=== PATIENT | male | born 1975 | race Caucasian/White ===

== ENCOUNTER 2022-02-16 09:46 | Emergency (ER) | payer BC, SELFPAY ==
[2022-02-16 09:56] VITALS: BP 138/100; PULSE 64; RESP 18; TEMP 36.7; O2SAT 99
--- NOTE | 2022-02-16 10:30 | DI.CT_ITS ---
Exam(s) CT RENAL COLIC WO EXAM: CT RENAL COLIC WO CLINICAL HISTORY: left flank pain into groin. TECHNIQUE: Imaging Protocol: Axial computed tomography images with coronal and sagittal reformatted images were created and reviewed. CONTRAST MATERIAL: Noncontrast COMPARISON: No exams were available for comparison FINDINGS: ABDOMEN: Lung Bases: Normal where visualized. Liver: Normal attenuation. No measurable mass. Gallbladder and biliary tract: No radiodense calculus or dilation. Pancreas: Normal density, no calcifications or inflammatory process. Spleen: Normal. Kidneys: Normal size, contour and axis. 1 millimeter stone at the left ureterovesical junction causin g mild hydronephrosis. Minimal left perinephric stranding. Small cyst right kidney. No suspicious masses seen. Adrenal glands: No masses seen. Abdominal Aorta: Abdominal portion non-dilated. PELVIS: Bladder: Symmetric distention, no gross wall thickening. No evidence of stones.No visible mass. Bowel: No obstruction or bowel wall thickening. Reproductive: Peritoneal cavity: No ascites, collection or mesenteric inflammatory response. 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 Mild facet degenerative rosas es lumbar spine.. IMPRESSION: 1 millimeter stone left ureterovesical junction causing mild left hydronephrosis. RADIATION DOSE DELIVERED: 881.68mGy.cm Total DLP DATA REPOSITORY: All CT scans at this facility are submitted to the National Radiology Data Registry (NRDR) Dose Index Registry (DIR) with the [employer] ([employer]). RADIATION OPTIMIZATION: All CT scans at this facility use at least one of these dose optimization te chniques: automated exposure control; mA and/or kV adjustment per patient size (includes targeted exa ms where dose is matched to clinical indication); or iterative reconstruction.
--- NOTE | 2022-02-16 10:32 | ED.GENADUL_ITS ---
Discharge Plan Disposition Patient Disposition: Home Condition: Stable Discharge Details Clinical Impression: Kidney stone Primary Care Provider: None,None ED Provider: Angelica Gonzalez Home Meds and New Rx's Prescriptions: Continued atorvastatin 40 mg Tablet 40 mg PO DAILY lisinopril 20 mg Tablet 20 mg PO DAILY amlodipine 10 mg Tablet 10 mg PO DAILY Discharge Instructions Instructions: Kidney Stones (ED) Additional Instructions: Your work-up today was positive for a 1 mm stone. This is was causing your pain from the left groin to your left flank. Please encourage hydration. You may use Tylenol and/or ibuprofen as needed for discomfort. Please take as directed on the packaging. Please take it the Flomax as prescribed. This has been sent to [facility]. You were given a dose here in [facility] your next dose will not be due until tomorrow. You may stop this medication after the passage of the stone. If you develop fever/chills, increased pain, inability stay hydrated or other new/worsening symptoms please take care urgently once again. Otherwise, I have referred you to local primary care as well as urology for continued care. Discharge Data Discharge Date/Time-TO BE ENTERED AT DEPARTURE: 02/16/22 12:43 Medical Decision Making Patient is a pleasant 46-year-old male presenting today with chief complaint of left flank pain radiating into the groin. He reports that around 730 this morning he had a sudden onset of severe pain feeling like he had been kicked in the testicles. States that the pain initiated in the left testicle and radiated towards the left flank. Pain is now primarily in the left flank and he is not having active testicular pain. He denies any hematuria, penile discharge. States that he has been more dehydrated recently than typical. Does have a history of kidney stones when he was 15. Denies any fevers or chills. On exam, patient appears nontoxic. He does appear uncomfortable and is holding his left flank. Abdomen is benign with no peritoneal findings. Left testicle without any swelling or pain. Left is slightly higher than the right but without testicular pain, I do not see evidence to suggest testicular torsion. More concern at this time for recurrent stone given patient's remote history. Will give Toradol, fluids and obtain imaging. Discussed this plan with the patient who is in agreement. FINDINGS: Lungs: Unremarkable. Lung bases are clear. Liver: Unremarkable. No mass. Gallbladder and bile ducts: Unremarkable. No calcified stones. No ductal dilation. Pancreas: Unremarkable. No ductal dilation. Spleen: Unremarkable. No splenomegaly. Adrenal glands: Normal. No mass. Kidneys and ureters: 1 mm obstructing stone at the left UVJ causing mild left hydronephrosis. Bilateral micro nephrolithiasis. No right-sided obstructive uropathy Stomach and bowel: Unremarkable. No obstruction. No mucosal thickening. Appendix: No evidence of appendicitis. Intraperitoneal space: Unremarkable. No free air. No significant fluid collection. Vasculature: Unremarkable. No abdominal aortic aneurysm. Lymph nodes: Unremarkable. No enlarged lymph nodes. Urinary bladder: Unremarkable as visualized. Reproductive: Unremarkable as visualized. Bones/joints: Remote T12 compression fracture Soft tissues: Unremarkable. IMPRESSION: 1. 1 mm obstructing stone at the left UVJ causing mild left hydronephrosis. 2. Bilateral micro nephrolithiasis. 3. No right-sided obstructive uropath Discussed these findings with the patient. Labs reviewed as well, no evidence of UTI. He has RBC in urine, consistent with above. Will begin on Flomax. Encouraged hydration. Pain is abatted currently. Discussed supportive care. Will refer to urology. Discussed pain management. He is doing well with Toradol. Will continue with APAP and NSAIDS. Return precauttions discussed. All of his questions and concerns were addressed, he si in agreement with this plan. HPI General Date/Time Provider Initiated Documentation: 02/16/22 10:32 . Limitations to Documentation: no limitations . Information obtained by: patient and RN notes reviewed . History of Present Illness 46 year old M presents to the emergency department with the chief complaint of left flank pain, described as severe, with intensity rated at 8. Quality is described as stabbing, and is localized to the back. Patient distal (to testicles). Patient started experiencing this hour(s) and it has been constant. No relieving factors improve symptom(s), No exacerbating factors reported . Patient notes no other symptoms.. Patient did receive the following treatments prior to arrival, none Related Data Home Medications Medication Instructions Recorded Confirmed amlodipine 10 mg tablet 10 mg PO DAILY 02/16/22 02/22/22 atorvastatin 40 mg tablet 40 mg PO DAILY 02/16/22 02/22/22 lisinopril 20 mg tablet 20 mg PO DAILY 02/16/22 02/22/22 Allergies Allergy/AdvReac Type Severity Reaction Status Date / Time No Known Allergies Allergy Unverified 02/22/22 07:08 General Stated Complaint: FlankPain STARLA: 3 Review of Systems Constitutional Constitutional: Reports as per HPI, Denies chills, Denies fatigue, Denies fever(s) and Denies headache(s) ENT Ears, Nose, Mouth, and Throat: Denies headache(s) Cardiovascular Cardiovascular: Reports as per HPI, Denies chest pain and Denies dyspnea Respiratory Respiratory: Reports as per HPI, Denies cough and Denies dyspnea Gastrointestinal Gastrointestinal: Reports as per HPI Genitourinary Genitourinary: Reports as per HPI Musculoskeletal Musculoskeletal: Reports as per HPI Neurologic Neurologic: Denies headache(s) Endocrine Endocrine: Denies fatigue PFSH All Active Problems (Updated 02/22/22 @ 07:28 by Cassidy Guerrero NP) Left renal stone (Acute) Social History Smoking/Tobacco Use Status: Current every day Tobacco Type: cigarettes Smoking risk assessment performed?: Yes Alcohol Intake: current Alcohol Intake frequency: a few times a week Alcohol type: beer Drug use: Daily Substance use type: marijuana Do you feel safe at home: Yes Do you feel safe in your relationship?: Yes Exam Const General: cooperative, healthy appearing, uncomfortable, no acute distress and well developed Nutritional Appearance: average body habitus and well nourished Orientation: alert and awake HENMT Mouth: moist mucous membranes Resp Effort & Inspection: normal respiratory effort and no respiratory distress Auscultation: clear to auscultation bilaterally, no rales, no rhonchi and no wheezes Cardio Rate: regular rate Rhythm: regular rhythm Heart Sounds: S1 normal and S2 normal GI Inspection: normal to inspection, no edema and non-distended Palpation: soft, no hepatosplenomegaly, no guarding, no hernias, no pulsatile masses and nontender Percussion: normal to percussion Auscultation: normal bowel sounds Male General Exam: Yes normal external exam, No edema, No erythema, No inguinal lymphadenopathy and No tenderness Penis: normal penis Scrotum: scrotum normal Testes: normal and testicular lie normal Back/Spine/Pelvis Back: CVA tenderness (left) Skin General skin exam: no rashes or lesions noted Neuro General: patient alert and patient awake Cognition: normal cognition Speech: speech normal Gait: normal gait Psych Appearance: grossly normal and well kempt Mental Status: mental status grossly normal Speech and Movement: speech and movement normal Course Vital Signs Vital signs: Vital Signs Temperature 36.7 C 02/16/22 09:56 Pulse 64 02/16/22 09:56 Respiratory Rate 18 02/16/22 09:56 Blood Pressure 138/100 H 02/16/22 09:56 Pulse Oximetry 99 02/16/22 09:56 Temperature 36.7 C 02/16/22 09:56 Temperature Source Temporal Artery Scan 02/16/22 09:56 Pulse 64 02/16/22 09:56 Respiratory Rate 18 02/16/22 09:56 Respiratory Effort Non-Labored 02/16/22 10:01 Blood Pressure 138/100 H 02/16/22 09:56 Blood Pressure Position Sitting 02/16/22 09:56 Pulse Oximetry 99 02/16/22 09:56 Oxygen Delivery Method Room Air 02/16/22 09:56 Oxygen Flow Rate 0 02/16/22 09:56 Pain Level 8 02/16/22 10:01 PAWSS Have you Been Recently Intoxicated or Drunk Within the Last 30 days?: No Have you Ever Experienced Previous Episodes of Alcohol Withdrawal?: No Have you ever Experienced Withdrawal Seizures?: No Have you ever Experienced Delirium Tremens(DT)s?: No Have you ever undergone Alcohol Rehabilitation Treatment (i.e, inpt ot outpatient treatment programs)?: No Have you ever Experienced Blackouts?: No Have you ever Combined Alcohol with other Downers within the last 90 days?: No Have you ever Combined Alcohol with any other Substance of Abuse during the last 90 days?: No Positive Blood Alcohol level on Presentation? [PCS.BAL]: No Evidence of Increased Autonomic Activity (i.e. HR>120, tremor, sweating, agitation, nausea)?: No Result: 0
[2022-02-16 10:42] LABS: Bilirubin Negative (Negative); Blood Moderate (Negative); Clarity Clear (Clear); Glucose Negative (Negative); Ketones Negative (Negative); Leukocyte Esterase Negative (Negative); Nitrite Negative (Negative); Specific Gravity 1.025 (1.005-1.025); pH 6.5 (5-8)
[2022-02-16] MEDS: Ketorolac 30 MG/ML VIAL IVP (10:46)
[2022-02-16] MEDS: Normal Saline 1,000 ML 1000 ML IV (10:47)
[2022-02-16 10:52] LABS: Abs Immature Grans 0.04 10^3/uL (0.0-0.06); Absolute Basophil Count 0.05 10^3/uL (0.0-0.2); Absolute Eosinophil Count 0.14 10^3/uL (0.0-0.7); Absolute Lymphocyte Count 2.09 10^3/uL (1.2-3.4); Absolute Monocyte Count 0.48 10^3/uL (0.1-0.8); Absolute Neutrophil Count 3.57 10^3/uL (1.2-6.7); Basophils % 0.8; Eosinophils % 2.2; HCT 41.7 % (40.0-50.0); HGB 14.1 g/dL (13.5-17.5); Immature Grans % 0.6; Lymphocytes % 32.8; MCH 29.6 pg (27.0-33.0); MCHC 33.8 % (32.0-36.0); MCV 88 fL (80-95); MPV 10.9 fL (8.0-11.0); Monocytes % 7.5; Neutrophils % 56.1; Platelet Count 241 10^3/uL (130-400); RBC 4.76 10^6/uL (4.36-5.78); RDW 13.5 % (11.8-14.1); RDW-SD 43.8 fL; WBC 6.37 10^3/uL (4.4-10.8)
[2022-02-16 10:54] LABS: Bacteria Negative HPF (Negative); C & S Indicated? No; Casts Negative LPF (Negative); Crystals Negative HPF (Negative); Epithelial Cells Rare HPF (Negative); Mucus Trace (Negative); WBC 0-2 HPF (0-5)
[2022-02-16 11:07] LABS: ALT 37 U/L (16-63); AST 30 U/L (15-37); Albumin 4.5 g/dL (3.4-5.0); Alkaline Phosphatase 92 U/L (46-116); Anion Gap 7.9 mmol/L (3-11); BUN 13 mg/dL (7-18); Bilirubin, Total 0.7 mg/dL (0.2-1.0); CO2 32.1 mmol/L (21.0-32.0); CREATININE 1.1 mg/dL (0.70-1.30); Calcium 8.9 mg/dL (8.5-10.1); Chloride 104 mmol/L (98-107); Estimated GFR 82.81 (mL/min/1.73m2); Glucose 105 mg/dL (74-106); Potassium 3.5 mmol/L (3.5-5.1); Sodium 144 mmol/L (136-145); Total Protein 8.1 g/dL (6.4-8.2)
--- NOTE | 2022-02-16 11:50 | DI.VRAD_ITS ---
PROCEDURE INFORMATION: Exam: CT Abdomen And Pelvis Without Contrast Exam date and time: 02/16/2022 11:18 AM Age: 46 years old Clinical indication: Other: Left flank pain into groin TECHNIQUE: Imaging protocol: Computed tomography of the abdomen and pelvis without contrast. Radiation optimization: All CT scans at this facility use at least one of these dose optimization techniques: automated exposure control; mA and/or kV adjustment per patient size (includes targeted exams where dose is matched to clinical indication); or iterative reconstruction. COMPARISON: No relevant prior studies available. FINDINGS: Lungs: Unremarkable. Lung bases are clear. Liver: Unremarkable. No mass. Gallbladder and bile ducts: Unremarkable. No calcified stones. No ductal dilation. Pancreas: Unremarkable. No ductal dilation. Spleen: Unremarkable. No splenomegaly. Adrenal glands: Normal. No mass. Kidneys and ureters: 1 mm obstructing stone at the left UVJ causing mild left hydronephrosis. Bilateral micro nephrolithiasis. No right-sided obstructive uropathy Stomach and bowel: Unremarkable. No obstruction. No mucosal thickening. Appendix: No evidence of appendicitis. Intraperitoneal space: Unremarkable. No free air. No significant fluid collection. Vasculature: Unremarkable. No abdominal aortic aneurysm. Lymph nodes: Unremarkable. No enlarged lymph nodes. Urinary bladder: Unremarkable as visualized. Reproductive: Unremarkable as visualized. Bones/joints: Remote T12 compression fracture Soft tissues: Unremarkable. IMPRESSION: 1. 1 mm obstructing stone at the left UVJ causing mild left hydronephrosis. 2. Bilateral micro nephrolithiasis. 3. No right-sided obstructive uropathy Dictated and Authenticated by: Marylou Domingo MD. Ordering:KARINA Dominguez MD
[2022-02-16 12:28] VITALS: BP 126/85; PULSE 73; RESP 19; TEMP 37.1; O2SAT 98
[2022-02-16 12:31] VITALS: BP 126/85; PULSE 73; RESP 19; TEMP 37.1; O2SAT 98
[2022-02-16] MEDS: Tamsulosin 0.4 MG CAPCR PO (12:31)
--- NOTE | 2022-02-17 08:18 | NUR.NOTE ---
Nursing Note: referral to [facility] for urology for stone
== END 2022-02-16 12:43 | disposition home or self-care (01) ==
PROVIDERS: Emergency Provider Physician Assistant
DX: N20.0 Calculus of kidney (principal)
CPT/HCPCS: 36415; 80053; 96361; 96374; 99284; 74176; 81003; 81015; 85025; J1885